=== PATIENT | male | born 1975 | race African-American/Black ===

== ENCOUNTER 2020-09-16 00:28 | Emergency (ER) | payer SELFPAY ==
[~2020-09-16] VITALS: Ht 170.2 cm; Wt 80.1 kg
[2020-09-16 00:40] VITALS: Ht 170.2 cm; Wt 80.1 kg
[2020-09-16 02:37] VITALS: BP 127/76
== END 2020-09-16 02:37 | disposition home or self-care (01) ==
LOC: ED 00:28
DX: A64 Unspecified sexually transmitted disease (principal)
CPT/HCPCS: 87491; 87591; J0696

== ENCOUNTER 2021-01-09 10:22 | Emergency (ER) | payer OTHER ==
[~2021-01-09] VITALS: Ht 170.2 cm; Wt 75.3 kg
[2021-01-09 10:35] VITALS: BP 133/91; Ht 170.2 cm; Wt 75.3 kg
[2021-01-09] MEDS ORDERED: PREDNISONE20 MG PO (11:08)
[2021-01-09] MEDS ORDERED: CEPHALEXIN500 MG PO (11:08)
== END 2021-01-09 11:16 | disposition home or self-care (01) ==
LOC: ED 10:22
DX: L25.9 Unspecified contact dermatitis, unspecified cause (principal); J45.909 Unspecified asthma, uncomplicated; I10 Essential (primary) hypertension
CPT/HCPCS: J7512